=== PATIENT | female | born 1985 | race Caucasian/White ===

== ENCOUNTER 2017-11-11 05:35 | Inpatient (IN) | payer MEDICAID, OTHER, SELFPAY ==
[2017-11-11] MEDS ORDERED: Ondansetron HCl/PF 4 MG/2 ML Vial IVP PRN ×3 (05:44→07:58)
[2017-11-11] MEDS ORDERED: Promethazine HCl 25 MG/ML VIAL IM PRN ×2 (05:44→07:58)
[2017-11-11] MEDS ORDERED: Bicitra 30 ML UDCUP PO SCH (05:45)
[2017-11-11] MEDS ORDERED: CEFAZOLIN/Water 2 GM/20 ML SYRINGE SLOW IVP SCH (05:45)
[2017-11-11 06:31] VITALS: BMI 35.3
[2017-11-11 06:31] LABS: Mean Corpuscular HGB CONC 32.9 g/dL (32.0-36.0); Mean Corpuscular Hemoglobin 27.5 pg (27.0-31.0); Mean Corpuscular Volume 83.8 fl (81.0-99.0); Mean Platelet Volume 7.4 fL (7.4-10.4); Platelet Count 236 thou/uL (130-400); RBC Distribution Width 11.9 % (11.5-14.5); Red Blood Cell (RBC) Count 4.38 mill/uL (4.20-5.40); White Blood Cell (WBC) Count 7.9 thou/uL (4.8-10.8)
--- NOTE | 2017-11-11 06:49 | PDOC.LDHP ---
Labor and Delivery H&P Chief complaint: scheduled section HPI: 32 yo presents for scheduled repeat section. Current gestational age (weeks): 39 (39.4/15.6w sono) Due date: 11/14/17 Dating criteria: second trimester ultrasound Grav: 4 Para: 1 (1021) Current complications: other (preE in first ) Abnormal US findings: No Past Medical History: possible preE in prior , anemia of Current medications: pre-anil vitamins, iron Previous surgical history: dilation and curettage, other (C/S with unknown scar type) Social history: none - Physical Exam Vital signs reviewed and normal: yes General: resting Heart: RRR Lungs: nonlabored breathing Abdomen: NTTP Extremeties: no edema FHT: category 1 (130/mod/no accel/no decel) [place] contractions every: N/A - OB Labs Blood type: O RH: positive Antibody Screen: negative HIV: negative RPR: negative HEPSAg: negative 1 hour GCT: negative (108) GBS: negative Rubella: immune Additional Labs: Dengue negative, Zika negative, Quad screen reassuring, GC/Chl neg, pap NILM - Assessment L&D Assessment: scheduled repeat section - Plan Plan: admit to L&D, to OR for section -: 1. H/o cesearean section - Per patient, emergency c/s 2/2 elevated BP - Risks, benefits and alternatives discussed and she desires to proceed with repeat C/S 2. Anemia of - H/H WNL 3. H/o preE in 1st - BP WNL, no preE symptoms at this time <Cristal Burleson - Last Filed: 11/11/17 07:18> <Nissa Tompkins - Last Filed: 11/11/17 12:52> Allergies/Adverse Reactions: Allergies Allergy/AdvReac Type Severity Reaction Status Date / Time No Known Allergies Allergy Verified 11/11/17 06:15 Attending Addendum - Attending Addendum Date/Time: 11/11/17 0456 I personally evaluated the patient and discussed the management with Dr. Burleson and Dr. Guy Gilmore I agree with the History, Examination, Assessment and Plan documented above with any addition or exceptions noted below. 32 yo female at 39.4 wks by 15.6 wks sono admitted for scheduled RLTCS. Uncomplicated . Labs and sono reviewed. Discussed R/B/A. Agrees to repeat LTCS. Does not want vertical skin incision for this delivery. Discussed options. Patient expressed desire for pfannenstiel incision. Will proceed to OR when available. William <Nissa Tompkins - Last Filed: 11/11/17 12:52>
[2017-11-11] MEDS ORDERED: Bicitra 30 ML UDCUP ONE (07:09)
[2017-11-11 07:15] LABS: Syphilis Antibody Nonreactive (Nonreactive); Syphilis Antibody Index 0.08 S/CO (<1.00 Non-Reactive)
[2017-11-11 07:16] LABS: Hep B Surf Ag Non-Reactive S/CO (NonReactive)
[2017-11-11] MEDS ORDERED: Morphine PF 1 MG/ML SYR ONE (07:21)
[2017-11-11] MEDS ORDERED: Fentanyl 100 MCG/2 ML VIAL ONE ×2 (07:21→09:14)
[2017-11-11] MEDS ORDERED: Oxytocin 10 UNITS/ML VIAL ONE ×2 (07:22→09:06)
[2017-11-11] MEDS ORDERED: Ondansetron HCl/PF 4 MG/2 ML Vial ONE ×2 (07:22→14:43)
[2017-11-11] MEDS ORDERED: Ketorolac Tromethamine 30 MG/ML VIAL ONE ×2 (07:22→14:43)
[2017-11-11] MEDS ORDERED: diphenhydrAMINE 50 MG/ML VIAL IVP PRN (07:58)
[2017-11-11] MEDS ORDERED: Ketorolac Tromethamine 30 MG/ML VIAL IVP PRN (07:58)
[2017-11-11] MEDS ORDERED: Promethazine HCl 25 MG SUPP PR PRN (07:58)
[2017-11-11] MEDS ORDERED: HYDROmorphone 2 MG/ML VIAL SLOW IVP PRN (07:58)
[2017-11-11] MEDS ORDERED: Meperidine HCl/PF 25 MG/ML VIAL SLOW IVP PRN (07:58)
[2017-11-11] MEDS ORDERED: Eucerin (Mineral Oil/Petrolatum,White) 30 gm Jar TOP PRN (07:58)
[2017-11-11] MEDS ORDERED: Naloxone HCl 0.4 mg/ml Vial IVP PRN ×2 (07:58)
[2017-11-11] MEDS ORDERED: Naloxone HCl 0.4 mg/ml Vial IV PRN (07:58)
[2017-11-11] MEDS ORDERED: Glycopyrrolate 0.2 MG/ML 5 ML SYRINGE ONE (07:59)
[2017-11-11] MEDS ORDERED: Ketorolac Tromethamine 30 MG/ML VIAL IVP SCH (08:00)
[2017-11-11] MEDS ORDERED: Communication Order-Pharmacy FS SCH (08:00)
[2017-11-11] MEDS ORDERED: Midazolam HCl 2 mg/2 ml Vial ONE (09:20)
--- NOTE | 2017-11-11 09:59 | PDOC.OPDEL ---
OB Operative/Delivery Note Delivery Dr/Surgeon: Guy Gilmore and Dr. Burleson Assist: Attending: Dr. Tompkins Pre-Delivery Diagnosis: scheduled section (32 yo @ 39.4 wks by 15.6 wk sono w/ hx of LTCS) Procedure/Post Delivery Dx: repeat low transverse CS Anesthesia: spinal - Findings A Sex: female - 1 min: 8 - 5 min: 9 - Additional Findings/Plan Placenta delivered: manual removal findings: other (dense uterine and abdominal adhesions) Estimated blood loss: 750 Compilations/Other Findings: Procedure: Repeat low transverse caesarean section Preoperative Diagnosis: 1)Term intrauterine 2)Previous 3)Zika exposure Postoperative Diagnosis: 1)Term intrauterine 2)Previous 3)Zika exposure 4)Dense uterine and abdominal adhesions Anesthesia: spinal Indications: The patient is a 32year old G4,P1021-->2 female at 39.4 weeks gestation by a 15.6 wk sono who presents for a repeat scheduled . Procedure in Detail: After risks, benefits, and alternatives were explained to the patient, she gave informed consent. Pre-operative antibiotics included Cefazolin 2 gram IV. The patient was taken to the operating room and spinal anesthesia was initiated. She was placed in the supine position with a left tilt and prepped and draped in usual sterile fashion. A Pfannenstiel incision was made with a scalpel and carried down to the level of the fascia which was sharply nicked. The fascial cut was extended bilaterally with Ann scissors. The inferior and superior edges of the cut fascial edges were elevated with Anjali clamps and the underlying rectus muscles were sharply and bluntly dissected free. The recti were divided digitally and retracted manually. There were extensive uterine and abdominal adhesions. The peritoneum was entered bluntly and retracted manually. Bladder blade was placed. Bladder flap was created with Metzenbaum scissors. A low transverse score was made with the scalpel and the uterus was entered in the midline with the scalpel. Clear fluid was seen. The hysterotomy was extended manually. The was noted to be ROT and after failed manual delivery was delivered by vacuum and fundal pressure. Mouth and nares were bulb suctioned. Cord clamped and cut and grossly normal female was handed to waiting nurse. Cord blood was obtained. Placenta was manually extracted, found to be intact with 3 vessel cord and discarded. The uterus was unable to be externalized d/t dense adhesions. The bladder blade was replaced and the uterus was closed with a running locking 1-0 monocryl, followed by one figure of eight, and one running stitch for hemostasis. The fascia was closed with a running non-locking 0- Vicryl suture. The subcutaneous tissue was sutured with three simple interrupted stitches using a 2-0 plain gut suture. The subcutaneous tissue was irrigated and the bovie was used to establish hemostasis of bleeders. The skin was sutured with 4-0 monocryl using the subcuticular fashion. Dermabond was applied followed by a pressure dressing. All counts were correct. The patient tolerated the procedure well and was taken to the recovery room in stable condition. Estimated Blood Loss: 750 ml Complications: Dense adhesions; vacuum assisted delivery Specimens: Cord blood sent to lab for blood type Findings: Grossly normal female infant with apgars of 8 and 9. Grossly normal placenta with 3 vessel cord discarded. Drains: Martin to gravity draining clear urine Post delivery plan: routine recovery <Keri Tovar - Last Filed: 11/11/17 09:55> - Additional Findings/Plan Compilations/Other Findings: Note...the peritoneum was fused to underlying adhesions. Not able to bluntly disect. Bladder flap was made but bladder was also densely adhered to peritoneum and uterus. Vacuum extraction was needed due to tight adhesion restricting delivery of the head. Sepra-film was placed over hysterotomy in hopes to decrease subsequent adhesions. William <Nissa Tompkins - Last Filed: 11/11/17 12:44> Attending Addendum - Attending Addendum Date/Time: 11/11/17 1242 I personally evaluated and participated in the procedure as discribed above with Dr. Guy Gilmore and Dr. Burleson I agree with the resident documentation. Would caution future pregnancies due to adhesions. Urine was clear in Martin and tube during and upon completion of procedure. William <Nissa Tompkins - Last Filed: 11/11/17 12:44>
[2017-11-11] MEDS ORDERED: Lanolin Ointment 7 GM TUBE TOP PRN (11:45)
--- NOTE | 2017-11-11 12:58 | PDOC.PP ---
Post Progress Note Post Day #: 0 Subjective: Doing well, starting to feel/move legs, has had clears, no solid food yet, has not gotten out of bed yet. Nursing PO intake tolerated: yes Flatus: no Ambulation: no Vital Signs (12 hours) Temp Pulse Resp 11/11/17 07:20 98.0 F 72 18 Weight Weight 84.822 kg - Physical Examination General: NAD Cardiovascular: no m/r/g, RRR Respiratory: clear to auscultation bilaterally, non-labored breathing Abdominal: + bowel sounds, lochia, no distention, appropriately TTP Skin: CS incision dry & intact Psychiatric: A&Ox3, normal affect Result Diagrams: 11/11/17 06:24 Additional Labs: Post Labs Blood Type O POSITIVE 11/11/17 06:24 Hep Bs Antigen Non-Reactive S/CO (NonReactive) 11/11/17 06:24 50 CC output recorded (1) Previous section Code(s): Z98.891 - HISTORY OF UTERINE SCAR FROM PREVIOUS SURGERY Status: Acute Comment: Hx of previous LTCS with vertical skin incision, multitude of adhesions found in surgery and had to use vacuum assist for delivery. Doing well 4 hours post op. Follow up H/H in AM (2) Anemia affecting Code(s): O99.019 - ANEMIA COMPLICATING , UNSPECIFIED TRIMESTER Status : Acute Comment: Hx of anemia, Hgb 12 today, follow up H/H AM and iron as needed (3) Obesity (BMI 35.0-39.9 without comorbidity) Code(s): E66.9 - OBESITY, UNSPECIFIED Status: Acute <Turtle,Alexsandra - Last Filed: 11/11/17 13:08> Vital Signs (12 hours) Temp Pulse Resp BP Pulse Ox 11/11/17 13:00 98.3 F 62 18 120/64 11/11/17 12:00 98.3 F 62 18 111/56 L 96 11/11/17 07:20 98.0 F 72 18 Weight Weight 84.822 kg Result Diagrams: 11/11/17 06:24 Additional Labs: Post Labs Blood Type O POSITIVE 11/11/17 06:24 Hep Bs Antigen Non-Reactive S/CO (NonReactive) 11/11/17 06:24 <Nissa Tompkins - Last Filed: 11/11/17 14:50> Attending Addendum - Attending Addendum Date/Time: 11/11/17 5601 I personally evaluated the patient and discussed the management with Dr. Heredia I agree with the History, Examination, Assessment and Plan documented above with any addition or exceptions noted below. 32 yo female s/p RLTCS with vacuum assistance complicated by dense adhesion on 11/11/17. POD/PPD #0 Doing well. Tolerating clears. Martin still in place. Adequate UOP. Will advance diet as tolerated. Continue routine pp care. ABrayMD <Nissa Tompkins - Last Filed: 11/11/17 14:50>
[2017-11-11] MEDS: Lactated Ringer's 1,000 ML IV SCH ×3 (14:39→23:53)
[2017-11-11] MEDS ORDERED: ePHEDrine/0.9% NaCl/PF SYRINGE 50 mg/10 ml ONE (14:43)
[2017-11-11] MEDS ORDERED: LR / Pitocin 40 units/1000 ml 1,000 ML ONE (16:05)
[2017-11-11] MEDS ORDERED: HYDROcodone/Acetaminophen 5/325 mg Tablet PO PRN (20:00)
--- NOTE | 2017-11-12 05:36 | PDOC.PP ---
Post Progress Note Post Day #: 1 Subjective: She slept well and is ambulating to use the restroom. She has not passed flatus or stool yet. She is tolerating a normal diet and says her pain is controlled. PO intake tolerated: yes Flatus: no (to the bathroom) Ambulation: yes Vital Signs (12 hours) Temp Pulse Resp BP 11/12/17 04:00 99.1 F 69 18 124/72 11/12/17 02:05 18 11/12/17 00:00 97.7 F 61 20 108/56 L 11/11/17 22:00 18 11/11/17 20:00 97.7 F 68 20 110/56 L Weight Weight 84.822 kg - Physical Examination General: NAD Cardiovascular: no m/r/g, RRR Respiratory: clear to auscultation bilaterally, non-labored breathing Abdominal: + bowel sounds, appropriately TTP Skin: CS incision dry & intact Neurological: no gross focal deficits Psychiatric: A&Ox3, normal affect Result Diagrams: 11/12/17 05:39 Additional Labs: Post Labs Blood Type O POSITIVE 11/11/17 06:24 Hep Bs Antigen Non-Reactive S/CO (NonReactive) 11/11/17 06:24 (1) Term delivered Code(s): O80 - ENCOUNTER FOR FULL-TERM UNCOMPLICATED DELIVERY Status: Acute (2) Vacuum-assisted delivery, delivered, current hospitalization Code(s): O66.5 - ATTEMPTED APPLICATION OF VACUUM EXTRACTOR AND FORCEPS Status : Acute (3) Anemia affecting Code(s): O99.019 - ANEMIA COMPLICATING , UNSPECIFIED TRIMESTER Status : Acute Comment: Hx of anemia, Hgb 12 today, follow up H/H AM and iron as needed (4) Obesity (BMI 35.0-39.9 without comorbidity) Code(s): E66.9 - OBESITY, UNSPECIFIED Status: Acute (5) Previous section Code(s): Z98.891 - HISTORY OF UTERINE SCAR FROM PREVIOUS SURGERY Status: Acute Comment: Hx of previous LTCS with vertical skin incision, multitude of adhesions found in surgery and had to use vacuum assist for delivery. Doing well 4 hours post op. Follow up H/H in AM - Assessment/Plan 32 yo @ 39.4/15.6w sono presents for scheduled repeat section. 1. term, sIUP, delivered via RLTCS, vacuum assisted. -Pt had dense adhesions; vacuum assisted delivery -Pt doing well. Ambulating. Not passing flatus or stool, but voiding adequately. Tolerating a normal diet. -Ibuprofen, toradol, and norco prn pain control -EBL 750ml; H/H down to 10.5 -DC briscoe today 2. Anemia of - H/H wnl initially but is down to 10.5 today; will continue to monitor; continue PO iron and docusate/senna for constipation. 3. H/o preE in 1st - BP WNL, no preE symptoms at this time <Keri Tovar - Last Filed: 11/12/17 06:24> Vital Signs (12 hours) Temp Pulse Resp BP 11/13/17 07:42 99.0 F 81 20 118/63 11/13/17 07:40 99.0 F 81 20 Weight Weight 84.822 kg Result Diagrams: 11/12/17 05:39 Additional Labs: Post Labs Blood Type O POSITIVE 11/11/17 06:24 Hep Bs Antigen Non-Reactive S/CO (NonReactive) 11/11/17 06:24 <Nissa Tompkins - Last Filed: 11/13/17 17:14> Attending Addendum - Attending Addendum Date/Time: 11/12/17 1712 I personally evaluated the patient and discussed the management with Dr. Tovar , Dr. Henley, and Dr. Heredia I agree with the History, Examination, Assessment and Plan documented above with any addition or exceptions noted below. 32 yo female s/p RLTCS with vacuum assistance complicated by dense adhesion on 11/11/17. POD/PPD #1 Doing well. Tolerating PO. Voiding well. Adequate UOP. Lochia appropriate. Incision healing well. Pain controlled. Breast feeding without difficulty. Continue routine pp care. Would caution future pregnancies. ABrayMD <Nissa Tompkins - Last Filed: 11/13/17 17:14>
[2017-11-12 05:55] LABS: Hemoglobin 10.5 g/dL (12.0-16.0); Mean Corpuscular HGB CONC 33.2 g/dL (32.0-36.0); Mean Corpuscular Hemoglobin 27.9 pg (27.0-31.0); Mean Corpuscular Volume 84.1 fl (81.0-99.0); Mean Platelet Volume 7.5 fL (7.4-10.4); Platelet Count 181 thou/uL (130-400); RBC Distribution Width 11.9 % (11.5-14.5); Red Blood Cell (RBC) Count 3.77 mill/uL (4.20-5.40); White Blood Cell (WBC) Count 8.6 thou/uL (4.8-10.8)
[2017-11-12] MEDS ORDERED: Adacel (T-DAP) 0.5 ML VIAL IM ONE (09:00)
[2017-11-12] MEDS: HYDROcodone/Acetaminophen 5/325 mg Tablet PO PRN (09:17)
[2017-11-12] MEDS: Prenatal Vitamin 1 TAB PO SCH (09:18)
[2017-11-12] MEDS: Lactated Ringer's 1,000 ML IV SCH ×2 (09:20→14:21)
[2017-11-12] MEDS: Ibuprofen 800 MG TAB PO SCH ×2 (14:19→21:52)
[2017-11-13] MEDS: Ibuprofen 800 MG TAB PO SCH ×2 (06:17→14:40)
[2017-11-13 07:43] VITALS: BP 118/63; TEMP 99
--- NOTE | 2017-11-13 08:32 | PDOC.PP ---
Post Progress Note Post Day #: 2 Subjective: Pt doing well. Voiding, ambulating, passing flatus, tolerating a normal diet and pain is controlled. PO intake tolerated: yes Flatus: yes Ambulation: yes Vital Signs (12 hours) Temp Pulse Resp BP 11/13/17 07:42 99.0 F 81 20 118/63 11/13/17 04:15 98.6 F 85 20 11/13/17 00:30 98.6 F 85 20 112/59 L Weight Weight 84.822 kg - Physical Examination General: NAD Cardiovascular: no m/r/g, RRR Respiratory: clear to auscultation bilaterally Abdominal: + bowel sounds Skin: CS incision dry & intact Neurological: no gross focal deficits Psychiatric: A&Ox3, normal affect Result Diagrams: 11/12/17 05:39 Additional Labs: Post Labs Blood Type O POSITIVE 11/11/17 06:24 Hep Bs Antigen Non-Reactive S/CO (NonReactive) 11/11/17 06:24 (1) Term delivered Code(s): O80 - ENCOUNTER FOR FULL-TERM UNCOMPLICATED DELIVERY Status: Acute (2) Vacuum-assisted delivery, delivered, current hospitalization Code(s): O66.5 - ATTEMPTED APPLICATION OF VACUUM EXTRACTOR AND FORCEPS Status : Acute (3) Anemia affecting Code(s): O99.019 - ANEMIA COMPLICATING , UNSPECIFIED TRIMESTER Status : Acute (4) Obesity (BMI 35.0-39.9 without comorbidity) Code(s): E66.9 - OBESITY, UNSPECIFIED Status: Acute (5) Previous section Code(s): Z98.891 - HISTORY OF UTERINE SCAR FROM PREVIOUS SURGERY Status: Acute - Assessment/Plan 32 yo @ 39.4/15.6w kristal presents for scheduled repeat section. POD 2 1. term, sIUP, delivered via RLTCS, vacuum assisted. -Pt had dense adhesions; vacuum assisted delivery -Pt doing well. Ambulating. Passing flatus, voiding adequately. Tolerating a normal diet. -Ibuprofen for pain -EBL 750ml; H/H down to 10.5 -Okay to dc today 2. Anemia of - H/H wnl initially but is down to 10.5; will continue to monitor; continue PO iron and docusate/senna for constipation. 3. H/o preE in 1st - BP WNL, no preE symptoms at this time <Keri Tovar - Last Filed: 11/13/17 08:32> Vital Signs (12 hours) Temp Pulse Resp BP 11/13/17 07:42 99.0 F 81 20 118/63 11/13/17 07:40 99.0 F 81 20 Weight Weight 84.822 kg Result Diagrams: 11/12/17 05:39 Additional Labs: Post Labs Blood Type O POSITIVE 11/11/17 06:24 Hep Bs Antigen Non-Reactive S/CO (NonReactive) 11/11/17 06:24 <Nissa Tompkins - Last Filed: 11/13/17 17:17> Attending Addendum - Attending Addendum Date/Time: 11/13/17 1717 I personally evaluated the patient and discussed the management with Dr. Tovar , Dr. Henley, and Dr. Heredia I agree with the History, Examination, Assessment and Plan documented above with any addition or exceptions noted below. 32 yo female s/p RLTCS with vacuum assistance complicated by dense adhesion on 11/11/17. POD/PPD #2 Doing well. Tolerating PO. Voiding well. Adequate UOP. Lochia appropriate. Incision healing well. Pain controlled. Breast feeding without difficulty. Ambulating well. Continue routine pp care. Would caution future pregnancies. ABrayMD <Nissa Tompkins - Last Filed: 11/13/17 17:17>
[2017-11-13] MEDS: Lactated Ringer's 1,000 ML IV SCH ×2 (10:13→10:14)
[2017-11-13] MEDS: Prenatal Vitamin 1 TAB PO SCH (10:22)
[2017-11-13] MEDS: HYDROcodone/Acetaminophen 5/325 mg Tablet PO PRN (14:40)
[2017-11-13] MEDS ORDERED: Ferrous Sulfate 325 MG TAB PO SCH (17:00)
== END 2017-11-13 18:40 | disposition home or self-care (01) | DRG 766 ==
LOC: L&D 05:35 → 3SW 11:56
PROVIDERS: ADMIT Family Medicine; ATTEND Family Medicine
PROC: 10D00Z1 Extraction of Products of Conception, Low, Open Approach (ICD-10-PCS; principal; 2017-11-11)
PROC: 10D07Z6 Extraction of Products of Conception, Vacuum, Via Natural or Artificial Opening (ICD-10-PCS; 2017-11-11)
DX: O34.211 Maternal care for low transverse scar from previous cesarean delivery (principal); O99.214 Obesity complicating childbirth; D64.89 Other specified anemias; Z37.0 Single live birth; Z3A.39 39 weeks gestation of pregnancy; O99.02 Anemia complicating childbirth; Z68.35 Body mass index [BMI] 35.0-35.9, adult; O99.89 Other specified diseases and conditions complicating pregnancy, childbirth and the puerperium; N73.6 Female pelvic peritoneal adhesions (postinfective); O66.5 Attempted application of vacuum extractor and forceps
CPT/HCPCS: 36415; 51702; 85027; 86780; 86850; 86900; 86901; 87340; J1885; J2250; J2274; J2310; J2405; J2590; J3010